=== PATIENT | female | born 2000 | race Caucasian/White ===

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

== ENCOUNTER 2023-04-14 11:29 | Outpatient (CLI) | payer OTHER, SELFPAY | END 2023-04-14 23:59 | disposition home or self-care (01) | PROVIDERS: PCP Pediatrics; Visit Provider Internal Medicine | DX: Z00.00 Encounter for general adult medical examination without abnormal findings (principal); Z11.3 Encounter for screening for infections with a predominantly sexual mode of transmission | CPT/HCPCS: 87491; 87591 ==